=== PATIENT | male | born 1975 | race Caucasian/White ===

== ENCOUNTER 2016-09-20 22:29 | Emergency (ER) | payer BC, OTHER ==
--- NOTE | ~2016-09-20 | CR72 ---
[facility] A Service of [facility] & [facility] RADIOLOGY TEXT RESULTS PATIENT: ALANIS COOPER LOCATION: [facility] : 79 UNIT #: [id number] AGE: [address]: Abdi Arrington MD SEX: M ORDER DR: [id number] [facility] [address] [place], [place] [address] [id number] MR#: [id number] Acc #: [id number] NAME: ALANIS COOPER : 1975 SEX: M STUDY DATE/TIME: 09/20/2016 21:38 UNIT: [facility] ROOM: STUDY DESCRIPTION: CR Chest Single View Portable Attending Physician: Abdi Arrington M.D. Ordering Physician: Gregorio Lockwood M.D. Primary Care Physician: Primary Care Physician No MEDICAL IMAGING REPORT This report is preliminary unless electronic signature is present EXAM Portable chest, 09/20/2016 HISTORY Cough and wheezing for 4 days. Hemoptysis. FINDINGS The cardiac size and pulmonary vascularity are normal. No infiltrates or effusions. Incidental small granuloma in the lateral left base is stable compared to 08/28/2012. IMPRESSION No acute findings. Incidental granuloma in the lateral left base. Dictated by... Wil Serrato M.D. THIS IS AN ELECTRONICALLY VERIFIED REPORT Wil Serrato M.D. at 09/21/2016 2:43 PM DFCody/alicia TD: 09/21/2016 04:16 JOB #: [id number] MEDICAL IMAGING REPORT Page 1 of 1 COPY
[2016-09-20 21:34] LABS: BASOPHIL% 0.5 % (0-2.5); EOSINOPHIL# 0.2 X10e3 (0-0.7); EOSINOPHIL% 2.5 % (0.0-7.0); HEMATOCRIT 39.9 % (38.0-50.0); HEMOGLOBIN 13.8 gm/dL (13.0-16.0); MEAN CORPUSCULAR HEMOGLOBIN 28.4 PG (28-34); MEAN CORPUSCULAR HGB CONC 34.7 g/dL (30-36); MEAN PLATELET VOLUME 8.6 FL (6.5-11.5); MONOCYTE# 0.3 X10e3 (0-1.0); MONOCYTE% 5.5 % (3.0-12.0); NEUTROPHIL# 2.6 X10e3 (1.5-7.1); NEUTROPHIL% 42.5 % (40-75); PLATELET COUNT 182 X10e3 (140-420); RED BLOOD COUNT 4.87 X10e (3.90-5.60); RED CELL DISTRIBUTION WIDTH 12.6 % (11.0-15.5); WHITE BLOOD COUNT 6.1 X10e3 (4.0-10.5)
[2016-09-20 21:38] LABS: DIFF IND NO
[2016-09-20 22:24] LABS: CALCIUM SERUM 9.9 mg/dL (8.4-10.2); GLOM FILT RATE Estimated 94.4 mL/min (>60)
[~2016-09-20 22:29] MED LIST: INDOMETHACIN50 MG PO; LORTAB 5/500 TA1 TA1 PO; PHENERGAN25 M1 PO
== END 2016-09-20 22:40 | disposition home or self-care (01) ==
LOC: CED 22:29
PROVIDERS: Emergency Medicine
DX: J06.9 Acute upper respiratory infection, unspecified (principal)
CPT/HCPCS: 36415; 71010; 80048; 85025; 99283